=== PATIENT | female | born 1990 | race Two or more races ===

== ENCOUNTER 2016-10-22 15:20 | Emergency (ER) | payer SELFPAY ==
[2016-10-22 15:27] VITALS: BP 124/69
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
== END 2016-10-22 16:00 | disposition home or self-care (01) ==
LOC: ER 15:20
DX: S80.00XA Contusion of unspecified knee, initial encounter (principal); M25.561 Pain in right knee; V86.59XA Driver of other special all-terrain or other off-road motor vehicle injured in nontraffic accident, initial encounter; F17.200 Nicotine dependence, unspecified, uncomplicated
CPT/HCPCS: 99283